=== PATIENT | male | born 1995 | race Caucasian/White ===

== ENCOUNTER 2017-01-25 18:53 | Emergency (ER) | payer BC ==
[2017-01-25] MEDS ORDERED: HYDROMORPHONE HCL 1MG/ML **SYRINGE IVP ONE (19:21)
[2017-01-25] MEDS ORDERED: ONDANSETRON HCL IV 4 MG/2 ML VIAL IVP ONE (19:21)
[2017-01-25] MEDS ORDERED: KETOROLAC 30 MG/ML VIAL IVP ONE (19:22)
--- NOTE | 2017-01-25 19:26 | Emergency Department Record ---
History of Present Illness - General Chief Complaint: Back Pain/Injury Stated Complaint: LOWER BACK/SIDE PAIN Time Seen by Provider: 01/25/17 19:21 Source: Patient Mode of Arrival: Wheelchair Limitations: No limitations - History of Present Illness Initial Comments: 21 yo male presents to ED with sudden-onset right sided flank pain while washing dishes one hour ago. Patient reports nausea and vomiting symptoms, denies recent injury, and denies any urinary symptoms. Patient denies history of kidney stones, denies previous history of theses symptoms, and denies abdominal surgeries in the past. Patient denies health problems at his baseline. MD Complaint: Back pain Onset/Timin -: Hour(s) Similar Symptoms Previously: No Place: Home Severity: Severe Quality: Sharp, Stabbing Consistency: Constant Improves With: None Worsens With: None Context: Unknown Associated Symptoms: Nausea/vomiting - Related Data Previous Rx's Medication Instructions Recorded Hydrocodone/Acetaminophen [[place] 1 each PO Q6H PRN #10 tablet 01/25/17 5-325 Tablet] Allergies Allergy/AdvReac Type Severity Reaction Status Date / Time No Known Allergies Allergy Unverified 01/10/17 12:40 Review of Systems Constitutional: Denies: Chills, Fever, Malaise, Night sweats Eyes: Denies: Eye discharge, Eye pain ENT: Denies: Congestion, Ear pain, Epistaxis Respiratory: Denies: Cough, Dyspnea Cardiovascular: Denies: Chest pain, Dyspnea on exertion Endocrine: Denies: Fatigue, Heat or cold intolerance Gastrointestinal: Reports: Nausea, Vomiting. Denies: Abdominal pain, Constipation Genitourinary: Denies: Testicular pain, Testicular mass Musculoskeletal: Reports: Back pain (right flank). Denies: Arthralgia, Gout, Joint swelling Skin: Denies: Bruising, Change in color Neurological: Denies: Abnormal gait, Confusion, Headache Psychiatric: Denies: Anxiety Hematological/Lymphatic: Denies: Anemia, Blood Clots Physical Exam - General General Appearance: Alert, Oriented x3, Cooperative, Moderate distress (appers uncomfortable on examination) Limitations: No limitations - Head Head exam: Atraumatic, Normocephalic, Normal inspection Head exam detail: negative: Abrasion, Contusion, Randall's sign, General tenderness, Hematoma, Laceration - Eye Eye exam: Normal appearance. negative: Conjunctival injection, Periorbital swelling, Periorbital tenderness, Scleral icterus - ENT Ear exam: negative: Auricular hematoma, Auricular trauma Nasal Exam: negative: Active bleeding, Discharge, Dried blood, Foreign body Mouth exam: negative: Drooling, Laceration, Muffled voice, Tongue elevation - Neck Neck exam: Normal inspection. negative: Meningismus, Tenderness - Respiratory Respiratory exam: Normal lung sounds bilaterally. negative: Respiratory distress, Rhonchi, Stridor, Wheezes - Cardiovascular Cardiovascular Exam: Regular rate, Normal rhythm, Normal heart sounds - GI/Abdominal GI/Abdominal exam: Soft. negative: Rebound, Rigid, Tenderness - Rectal Rectal exam: Deferred - exam: Deferred - Extremities Extremities exam: Normal inspection. negative: Pedal edema, Tenderness - Back Back exam: Reports: CVA tenderness (R). Denies: CVA tenderness (L) - Neurological Neurological exam: Alert, Normal gait, Oriented X3 - Psychiatric Psychiatric exam: Normal affect, Normal mood - Skin Skin exam: Normal color. negative: Abrasion Type of lesion: negative: abrasion Course - Reevaluation(s) Reevaluation #1: 01/25/17 20:03 Labs reviewed and are grossly unremarkable for an acute process. UA demonstrates moderate blood, amorphous sediment. Patient and his SO were updated on results thus far, reports that he is feeling much better following pain medications. CT is pending at this time. Reevaluation #2: 01/25/17 20:14 CT Abdomen and Pelvis: Mild right sided hydronephrosis, 2 mm distal ureteral stone right. Normal appendix. Patient and SO were updated on all results, reports that his pain symptoms are down to 1/10. Discussed discharge with follow-up instructions with Dr. Moyer next week in the [facility] for further evaluation of his kidney stone symptoms. Patient appears stable for discharge at this time. Medical Decision Making - Lab Data Result diagrams: 01/25/17 19:27 01/25/17 19:27 Disposition Disposition: Discharge Clinical Impression: Ureteral calculus Disposition: Home, Self-Care Condition: (2) Stable Instructions: Kidney Stones (ED) Additional Instructions: Return to ED if your symptoms worsen or if you have any concerns. Ted as directed. Follow-up with Dr. Moyer in the [facility] next week as directed. Prescriptions: Hydrocodone/Acetaminophen [[place] 5-325 Tablet] 1 each PO Q6H PRN #10 tablet PRN Reason: Pain - Moderate (5-7) Referrals: YING MOYER M.D. [MEDICAL DOCTOR] - [facility] [Provider Group] Forms: Patient Portal Access Time of Disposition: 20:05 Quality - Quality Measures Quality Measures: N/A - Blood Pressure Screening Does Patient Have Any of the Following: No Blood Pressure Classification: Normal BP Reading Systolic Measurement: 109 Diastolic Measurement: 66 Screening for High Blood Pressure: < Normal BP, F/U Not Required > [G8783]
[2017-01-25] MEDS ORDERED: 0.9 % SODIUM CHLORIDE 1000ML 1,000 ML IV SCH (19:30)
[2017-01-25 19:37] LABS: BASO % 0.1 % (0-6); EOS % 1.5 % (0-6); HEMATOCRIT 44.4 % (42.0-52.0); HEMOGLOBIN 16.2 gm/dl (14.0-18.0); LYMPH % 31.6 % (16-45); MEAN CELL VOLUME 84.7 fl (81-97); MEAN CORPUSCULAR HEMOGLOBIN 30.9 pg (27-33); MEAN CORPUSCULAR HGB CONC 36.5 g/dl (32-36); MEAN PLATELET VOLUME 9.7 fl (7.4-10.4); MONO % 9.8 % (0-9); PLATELET COUNT 289 K/uL (130-400); RED BLOOD COUNT 5.24 M/uL (4.40-5.70); RED CELL DISTRIBUTION WIDTH 11.9 % (11.5-14.5); WHITE BLOOD COUNT W/O DIFF 6.8 K/uL (4.2-12.2)
[2017-01-25 19:42] LABS: URINE BILIRUBIN NEGATIVE (NEGATIVE); URINE BLOOD MODERATE (NEGATIVE); URINE COLOR YELLOW; URINE GLUCOSE (UA) NEGATIVE (NEGATIVE); URINE KETONE NEGATIVE (NEGATIVE); URINE LEUKOCYTE ESTERASE NEGATIVE (NEGATIVE); URINE NITRITE NEGATIVE (NEGATIVE); URINE PROTEIN TRACE (NEGATIVE); URINE UROBILINOGEN 0.2 E.U./dL (0.20 - 1.00)
[2017-01-25 19:49] LABS: URINE APPEARANCE CLOUDY
[2017-01-25 19:50] LABS: URINE AMORPHOUS SEDIMENT 3+; URINE BACTERIA FEW; URINE EPITHELIAL CELLS 0 - 2 (FEW); URINE WBC 0 - 2 (0-2/hpf)
[2017-01-25 19:54] LABS: ALB/GLOB RATIO 1.8 (1.1-1.8); ALBUMIN 4.9 gm/dL (3.5-5.0); ALKALINE PHOSPHATASE 52 U/L (38-126); ALT/SGPT 50 U/L (21-72); ANION GAP 12.8 (7-16); AST/SGOT 23 U/L (17-59); BILIRUBIN,TOTAL 0.83 mg/dL (0.2-1.3); BLOOD UREA NITROGEN 11 mg/dL (9-20); CARBON DIOXIDE 23.2 mmol/L (22-30); CREATININE 0.8 mg/dL (0.66-1.25); EST GLOMERULAR FILTRATION RATE > 60 ml/min; GLUCOSE,RANDOM 109 mg/dL (70-110); TOTAL PROTEIN 7.7 gm/dL (6.3-8.2)
--- NOTE | 2017-01-26 09:11 | CT SCAN REPORT ---
EXAM: CT OF THE ABDOMEN AND PELVIS WITHOUT CONTRAST HISTORY: BACK PAIN. TECHNIQUE: CT of the abdomen and pelvis without oral or IV contrast which limits evaluation of bowel and solid visceral organs. Comparison: None. FINDINGS: Limited evaluation of the lung bases is unremarkable. The osseous structures are grossly intact. Limited evaluation of the liver, spleen, adrenal glands, pancreas, and left kidney are unremarkable. The gallbladder is present. Mild to moderate right sided hydronephrosis and hydroureter, secondary to a 2 mm distal right ureteral calculus. The urinary bladder is not distended, limiting its evaluation. Moderate stool in the colon. No free air or free fluid. Normal appendix. Several nonenlarged as well as mildly enlarged lymph nodes in the central mesentery and right lower quadrant mesentery may reflect mesenteric adenitis. IMPRESSION: 1. MILD RIGHT SIDED HYDRONEPHROSIS AND HYDROURETER SECONDARY TO A 2 MM DISTAL RIGHT URETERAL CALCULUS. 2. POSSIBLE MESENTERIC ADENITIS. JOB NUMBER: [id number] MTDD
== END 2017-01-25 20:43 | disposition home or self-care (01) ==
LOC: ER 18:53
DX: N13.2 Hydronephrosis with renal and ureteral calculous obstruction (principal); R11.2 Nausea with vomiting, unspecified
CPT/HCPCS: 74176; 80053; 81001; 85025; 96374; 96375; 99284; J1170; J1885; J2405; J7030